=== PATIENT | male | born 2000 | race Caucasian/White ===

== ENCOUNTER 2021-08-23 00:01 | Emergency (ER) | payer OTHER ==
[~2021-08-23] VITALS: Ht 190.5 cm; Wt 140.6 kg
[2021-08-23 00:20] VITALS: BP 139/75
--- NOTE | 2021-08-23 01:14 | NUR ---
Patient ambulated to bed 3
--- NOTE | 2021-08-23 01:30 | NUR ---
C/O right eye pain and irritation x 1 day. Patient reported, had right eye irritation and pain since yesterday. PMHx: DENIES
[2021-08-23] MEDS ORDERED: POLY10SO OP (01:41)
[2021-08-23 01:57] VITALS: BP 139/75
--- NOTE | 2021-08-23 01:57 | NUR ---
Patient discharged with v/s stable. Written and verbal after care instructions given and explained. Patient alert, oriented and verbalized understanding of instructions. Ambulatory with steady gait. All questions addressed prior to discharge. ID band removed. Patient advised to follow up with PMD. Rx of POLYTRIM EYE DROPS given. Patient educated on indication of medication including possible reaction and side effects. Opportunity to ask questions provided and answered.
== END 2021-08-23 01:57 | disposition home or self-care (01) ==
LOC: MED 00:01
DX: H10.9 Unspecified conjunctivitis (principal); B96.89 Other specified bacterial agents as the cause of diseases classified elsewhere; Z79.899 Other long term (current) drug therapy
CPT/HCPCS: 99283